=== PATIENT | male | born 1960 | race Caucasian/White ===

== ENCOUNTER 2021-10-06 14:16 | Inpatient (IN) | payer MEDICAID ==
[~2021-10-06] VITALS: Ht 170.2 cm; Wt 80.7 kg
[2021-10-06 14:27] VITALS: BP 119/79
[2021-10-06 16:46] LABS: BASOPHILS # (AUTO) 0.1 K/uL (0.00-0.22); BASOPHILS % (AUTO) 0.7 % (0.0-2.0); EOSINOPHILS # (AUTO) 0.4 K/uL (0-0.4); EOSINOPHILS % (AUTO) 6.3 % (0.0-4.0); HEMATOCRIT 44.8 % (36-52); HEMOGLOBIN 15.7 g/dL (12.0-18.0); LYMPHOCYTES # (AUTO) 1.4 K/uL (2.0-11.5); LYMPHOCYTES % (AUTO) 19.5 % (20.5-51.1); MEAN CORPUSCULAR HEMOGLOBIN 33 pg (27-31); MEAN CORPUSCULAR HGB CONC 35 g/dL (33-37); MEAN CORPUSCULAR VOLUME 92.7 fL (80-94); MONOCYTES # (AUTO) 0.6 K/uL (0.8-1.0); MONOCYTES % (AUTO) 7.8 % (1.7-9.3); NEUTROPHILS # (AUTO) 4.7 K/uL (1.8-7.7); NEUTROPHILS % (AUTO) 65.7 % (42.2-75.2); PLATELET COUNT (AUTO) 158 K/uL (140-450); RED BLOOD CELL COUNT(AUTO) 4.84 MIL/uL (4.20-6.10); RED CELL DISTRIBUTION WIDTH 12.9 % (11.6-13.7); WHITE BLOOD COUNT (AUTO) 7.1 K/uL (4.8-10.8)
--- NOTE | 2021-10-06 16:59 | NUR ---
PT TO ER BED 7 VIA W/C
[2021-10-06 17:14] LABS: ANION GAP 12.6 (8-16); CARBON DIOXIDE 27.7 mmol/L (21-32); CREATININE 1.3 mg/dL (0.6-1.3); POTASSIUM 4.3 mmol/L (3.5-5.1); TOTAL BILIRUBIN 0.5 mg/dL (0.0-1.0)
[2021-10-06] MEDS ORDERED: ONDANSETRON 4 MG/2 ML VIAL IVP PRN (17:50)
[2021-10-06] MEDS ORDERED: MORPHINE SULFATE 2 MG/ML SYR IVP PRN (17:50)
[2021-10-06] MEDS ORDERED: DEXTROSE 50% 50 ML SYR IVP PRN (18:00)
[2021-10-06] MEDS ORDERED: ZOLPIDEM 10 MG TAB PO PRN (18:00)
[2021-10-06] MEDS ORDERED: DOCUSATE SODIUM 100 MG GELCAP PO PRN (18:00)
--- NOTE | 2021-10-06 18:20 | NUR ---
61YO MALE PT BIB FRIEND [facility]OUND [facility]. PT PRESENTS WITH OPEN WOUND DUE TO R BIG TOE AMPUTATION AT [facility] X4 MONTHS AGO ON JUNE 09. PT STATES HE HAD " BONE INFECTION" IN 3 OF HIS TOES IN R FOOT AND TOLD BY [facility] "INFECTION WOULD BE SHAVED OFF". PT HAD FULL AMPUTATION OF ALL TOES IN R FOOT AND WHICH HE REPORTS HE DID NOT CONSENT TO . PT STATES DULL 3/10 PAIN AT SITE. PT STATES WOUND HASNT HEALED SINCE SUTURE REMOVAL AND GOES TO WEEKLY WOUND CHECKS AND CLEANING. PT BACK OF R ANKLE WARM TO TOUCH. PT MARKETING OPERATIONS ASSOCIATE TO TOUCH , CAP REFILL <3 THROUGHOUT FOOT. PT STATES BEIING COMPLIANT W/ ANTIBIOTICS. DENIES N/V/D, CHEST PAIN OR FEVERS. PT AAOX4, NO VISIBLE DISTRESS, RESPIRATIONS EVEN AN UNLABORED AND WHEELCHAIR BOUNDED. HX: DIABETES . HYPERLIPIDIMEA, OSTEOMYLELITIS NKA
--- NOTE | 2021-10-06 18:56 | NUR ---
PT SWABBED FOR COVID(CORIN). WALKED TO LAB
--- NOTE | 2021-10-06 19:15 | NUR ---
REPORT RECIEVED FROM GREGORY RUSS
--- NOTE | 2021-10-06 19:30 | NUR ---
REPORT GIVEN TO HAKAN RUSS. ALL QUESTIONS ANSWERED. TRANSFER OF CARE AT THIS TIME
--- NOTE | 2021-10-06 20:00 | NUR ---
61YR OLD MALE C/O R FOOT PAIN . [facility]. PENDING BED ASSIG. ADMISSION DX OSTEOMYELITIS. R FOOT SWELLING WITH PAIN. BIG TOE ON R FOOT WITH WOUND. PT IS A&OX4. SKIN WARM AND DRY. WHEELCHAIR BOUND. PT IS IN BED WITH HOB ELEVATED. 20G L AC. 5/10 PAIN. BED IN LOWEST POSITION SIDE RAILS UPX2
[2021-10-06] MEDS ORDERED: ASPI-1822 PO (20:41)
[2021-10-06] MEDS ORDERED: MAGN400S60 PO (20:42)
[2021-10-06] MEDS ORDERED: VIT1CAPS45 PO (20:43)
[2021-10-06] MEDS ORDERED: METF-346 PO (20:44)
[2021-10-06] MEDS ORDERED: VIT1CAPS9 PO (20:44)
[2021-10-06] MEDS ORDERED: GABA-636 PO (20:45)
--- NOTE | 2021-10-06 20:53 | NUR ---
Patient will be admitted to care of [facility]. Admited to [facility]. Will go to room 122A. Belongings list completed. Report to KARTIK GRAY.
--- NOTE | 2021-10-06 20:53 | NUR ---
Chart checked and completed.
[2021-10-06 21:04] VITALS: BP 116/59
--- NOTE | 2021-10-06 21:04 | NUR ---
RECEIVED PATIENT FROM ER NURSE STEPHANIE. PT IS FULL CODE NO KNOWN ALLERGIES. A/0 X4. DIVEHI SPEAKING BUT UNDERSTANDS SOME BELGIAN. PT HAS A LAC 20G SALINE LOCK. PT IS WHEELCHAIR BOUND, BUT IS ABLE TO MOVE EXTREMITIES AND TURN HIMSELF. PT TOES ON RT FOOT HAVE BEEN AMPUTATED, AND RT TOE AND RT PINKY TOE AREA ARE RED AND INFLAMED. PICTURES TAKEN AND PLACED IN CHART. PT ORIENTED TO SURROUNDINGS. BED IN LOWEST POSITION, HOB ELEVATED, CALL LIGHT IN REACH, WILL CONTINUE TO MONITOR PATIENT.
[2021-10-06] MEDS ORDERED: PIPERACILLIN/TAZOBACTAM 3.375 GM VIAL IV ONE (21:53)
[2021-10-06] MEDS: PIPERACILLIN/TAZOBACTAM 3.375 GM in DEXTROSE 5% 50 ML IV SCH (21:55)
[2021-10-06] MEDS: BLOOD GLUCOSE MONITORING 1 DEV DEV FS SCH (21:55)
[2021-10-06] MEDS: MORPHINE SULFATE 2 MG/ML SYR IVP PRN (23:41)
[2021-10-07] MEDS ORDERED: MAG SULF 2000 MG/WATER PREMIX 50 ML IV PRN
[2021-10-07] MEDS ORDERED: PIPERACILLIN/TAZOBACTAM 3.375 GM VIAL IV ONE (04:13)
[2021-10-07] MEDS: PIPERACILLIN/TAZOBACTAM 3.375 GM in DEXTROSE 5% 50 ML IV SCH ×3 (05:14→21:02)
[2021-10-07 06:10] VITALS: BP 114/76
[2021-10-07 06:18] LABS: BASOPHILS # (AUTO) 0.1 K/uL (0.00-0.22); BASOPHILS % (AUTO) 0.9 % (0.0-2.0); EOSINOPHILS # (AUTO) 0.5 K/uL (0-0.4); EOSINOPHILS % (AUTO) 8.9 % (0.0-4.0); HEMATOCRIT 42.2 % (36-52); LYMPHOCYTES # (AUTO) 1.7 K/uL (2.0-11.5); LYMPHOCYTES % (AUTO) 28.3 % (20.5-51.1); MEAN CORPUSCULAR HEMOGLOBIN 33 pg (27-31); MEAN CORPUSCULAR HGB CONC 36 g/dL (33-37); MEAN CORPUSCULAR VOLUME 91.8 fL (80-94); MONOCYTES # (AUTO) 0.6 K/uL (0.8-1.0); MONOCYTES % (AUTO) 9.6 % (1.7-9.3); NEUTROPHILS # (AUTO) 3.2 K/uL (1.8-7.7); NEUTROPHILS % (AUTO) 52.3 % (42.2-75.2); PLATELET COUNT (AUTO) 139 K/uL (140-450); RED CELL DISTRIBUTION WIDTH 13.1 % (11.6-13.7); WHITE BLOOD COUNT (AUTO) 6.1 K/uL (4.8-10.8)
[2021-10-07 06:23] LABS: ANION GAP 10.6 (8-16); CARBON DIOXIDE 29.2 mmol/L (21-32); CREATININE 0.8 mg/dL (0.6-1.3); POTASSIUM 3.8 mmol/L (3.5-5.1)
[2021-10-07] MEDS: BLOOD GLUCOSE MONITORING 1 DEV DEV FS SCH ×4 (06:39→21:01)
--- NOTE | 2021-10-07 08:00 | NUR ---
GOT REPORT FROM THE NIGHT NURSE PT SLEEPING NO SOB, LOOKS COMFORTABLE.[id number]
--- NOTE | 2021-10-07 09:07 | NUR ---
PATIENT HAS BEEN SCREENED AND CATEGORIZED LOW NUTRITION RISK. PATIENT WILL BE SEEN WITHIN 7 DAYS OF ADMISSION. 10/13/[address] Addendum: 10/09/21 at [address] [facility] CONSULT HAS BEEN RECEIVED FOR WOUNDS. PATIENT HAS BEEN RE-SCREENED HIGH RISK AND WILL BE SEEN WITHIN 1-2 DAYS OF RECEIVING THE [facility] CONSULT. ROBEL HERNADEZ RD
[2021-10-07 12:00] VITALS: BP_SYST 114; BP_SYST 119; BP_DIAS 73; BP_DIAS 76
[2021-10-07] MEDS: INSULIN LISPRO SLIDING SCALE 100 UNITS/ML VIAL SUBQ PRN (12:44)
[2021-10-07] MEDS: ACETAMINOPHEN 325 MG TAB PO PRN ×2 (13:01→17:01)
[2021-10-07 16:00] VITALS: BP 115/60
[2021-10-07] MEDS: MORPHINE SULFATE 2 MG/ML SYR IVP PRN (21:49)
[2021-10-07 22:00] VITALS: BP 117/58
[2021-10-08] MEDS: PIPERACILLIN/TAZOBACTAM 3.375 GM in DEXTROSE 5% 50 ML IV SCH ×3 (05:17→21:02)
[2021-10-08 06:00] VITALS: BP 114/60
[2021-10-08] MEDS: ONDANSETRON 4 MG/2 ML VIAL IVP PRN (06:03)
[2021-10-08 06:06] LABS: ANION GAP 9.1 (8-16); CARBON DIOXIDE 29.6 mmol/L (21-32); CREATININE 0.8 mg/dL (0.6-1.3); POTASSIUM 3.7 mmol/L (3.5-5.1)
[2021-10-08 06:31] LABS: BASOPHILS % (AUTO) 0.9 % (0.0-2.0); EOSINOPHILS # (AUTO) 0.5 K/uL (0-0.4); HEMATOCRIT 42.7 % (36-52); HEMOGLOBIN 15.2 g/dL (12.0-18.0); LYMPHOCYTES # (AUTO) 1.7 K/uL (2.0-11.5); LYMPHOCYTES % (AUTO) 29.2 % (20.5-51.1); MEAN CORPUSCULAR HEMOGLOBIN 33 pg (27-31); MEAN CORPUSCULAR HGB CONC 36 g/dL (33-37); MEAN CORPUSCULAR VOLUME 91.5 fL (80-94); MONOCYTES # (AUTO) 0.6 K/uL (0.8-1.0); MONOCYTES % (AUTO) 9.8 % (1.7-9.3); NEUTROPHILS # (AUTO) 2.9 K/uL (1.8-7.7); NEUTROPHILS % (AUTO) 51.1 % (42.2-75.2); PLATELET COUNT (AUTO) 138 K/uL (140-450); RED BLOOD CELL COUNT(AUTO) 4.67 MIL/uL (4.20-6.10); RED CELL DISTRIBUTION WIDTH 12.8 % (11.6-13.7); WHITE BLOOD COUNT (AUTO) 5.7 K/uL (4.8-10.8)
[2021-10-08] MEDS: BLOOD GLUCOSE MONITORING 1 DEV DEV FS SCH ×4 (06:39→21:50)
--- NOTE | 2021-10-08 07:33 | NUR ---
RECEIVED PATIENT FROM SHOVEL LOGGER NURSE FOR CONTINUITY OF CARE. PT IS AOX4, ABLE TO MAKE NEEDS KNOWN. RESPIRATIONS EVEN AND UNLABORED. ON ROOM AIR AND NO DISTRESS NOTED. SKIN IS WARM, DRY, AND NON-INTACT. NOTED OPEN TWO OPEN ULCERS ON RIGHT FOOT. NO DRAINAGE NOTED. REINFORCED DRESSING. IV SITE ON LAC 20G. INTACT AND PATENT. SALINE LOCKED. DENIES PAIN AT THE MOMENT. PLAN OF CARE DISCUSSED. SAFETY PRECAUTIONS IN PLACE. CALL LIGHT WITHIN REACH. WILL CONTINUE TO MONITOR.
[2021-10-08 08:00] VITALS: BP 124/75
--- NOTE | 2021-10-08 10:00 | NUR ---
ALL SCHEDULED MEDS GIVEN. PT IS STABLE. NO DISTRESS NOTED. WILL CONTINUE TO MONITOR.
[2021-10-08] MEDS: INSULIN LISPRO SLIDING SCALE 100 UNITS/ML VIAL SUBQ PRN ×2 (12:18→22:13)
--- NOTE | 2021-10-08 12:18 | NUR ---
BS CHECK WAS 271. ADMINISTERED 6 UNITS OF INSULIN SQ PER MD ORDERED.
--- NOTE | 2021-10-08 14:15 | NUR ---
CHANGED PATIENT'S RIGHT FOOT WOUND DRESSING. KEPT C/D/I. NO DRAINAGE WAS NOTED.
[2021-10-08 16:00] VITALS: BP 130/74
--- NOTE | 2021-10-08 17:10 | NUR ---
DR. PALOMO AT BEDSIDE.
--- NOTE | 2021-10-08 17:25 | NUR ---
CONSULTED DR. ROSALES PODIATRY.
--- NOTE | 2021-10-08 19:26 | NUR ---
ENDORSED TO JAVA SECURITY ARCHITECT NURSE FOR CONTINUITY OF CARE. PT IS STABLE.
--- NOTE | 2021-10-08 19:30 | NUR ---
RECEIVED REPORT FROM DAY SHIFT NURSE JASKARAN FOR CONTINUITY OF CARE. PATIENT IS A&O X 4. PATIENT'S IV IS A LAC 20G. HE IS RUNNING NS 5ML TKO. PATIENT IS ON ROOM AIR. BREATHING IS NORMAL WITH SYMMETRICAL RISE AND FALL OF CHEST. RIGHT FOOT IS WRAPPED, PATIENT IS MISSING TOES ALL TOES DUE TO AMPUTATION. WILL CONTINUE TO OBSERVE PATIENT.
[2021-10-08 20:00] VITALS: BP 129/68
--- NOTE | 2021-10-08 20:15 | NUR ---
OBTAINED VITALS. VITALS WERE: TEMP 97.7, HR 64, BP 129/68, O2 98, RR 18. PATIENT WAS AWAKE WATCHING TV. PATIENT IS ON ROOM AIR. BREATHING WAS NORMAL WITH SYMMETRICAL RISE AND FALL OF CHEST. BED IS IN LOWEST POSITION, WHEELS LOCKED, CALL LIGHT IN PLACE. WILL CONTINUE TO OBSERVE PATIENT.
--- NOTE | 2021-10-08 22:15 | NUR ---
2100 MEDICATIONS WERE GIVEN. PATIENT TOLERATED WELL. 1200ML WAS EMPTIED FROM URINAL. BLOOD SUGAR WAS 159, 2 UNITS WAS GIVEN. DRESSING ON FOOT APPEARED TO BE DIRTY, DRESSING WAS REMOVED, FOOT HAD TWO OPEN WOUNDS ON EACH END. PLACED NEW GAUZE AND BANDAGE ON FOOT. PATIENT WAS AWAKE WATCHING TV. IVF WAS RUNNING NS 5ML TKO. BREATHING WAS NORMAL WITH SYMMETRICAL RISE AND FALL OF CHEST. BED WAS IN LOWEST POSITION, CALL LIGHT IN REACH. WILL CONTINUE TO OBSERVE PATIENT.
--- NOTE | 2021-10-09 00:10 | NUR ---
LOOKED IN ON PATIENT. PATIENT WAS SLEEPING. BREATHING WAS NORMAL WITH SYMMETRICAL RISE AND FALL OF CHEST. BED WAS IN LOWEST POSITION, WHEELS LOCKED AND CALL LIGHT IN REACH. WILL CONTINUE TO OBSERVE PATIENT.
--- NOTE | 2021-10-09 02:00 | NUR ---
LOOKED IN ON PATIENT. PATIENT WAS SLEEPING. PATIENT IS RUNNING NS AT 5ML TKO. BED WAS IN LOWEST POSITION, WHEELS LOCKED, CALL LIGHT IN PLACE. BREATHING WAS NORMAL WITH SYMMETRICAL RISE AND FALL OF CHEST. WILL CONTINUE TO OBSERVE PATIENT.
[2021-10-09 04:00] VITALS: BP 129/71
--- NOTE | 2021-10-09 04:20 | NUR ---
OBTAINED PATIENT'S 0400 VITALS. PATIENT WAS SLEEPING AT THE TIME OF ENTERING ROOM. VITALS WERE: TEMP 97.3, HR 63, BP 129/71, RR 18, O2 98. WILL CONTINUE TO OBSERVE PATIENT.
[2021-10-09] MEDS: PIPERACILLIN/TAZOBACTAM 3.375 GM in DEXTROSE 5% 50 ML IV SCH ×3 (05:41→20:37)
--- NOTE | 2021-10-09 05:50 | NUR ---
GAVE ZOSYN IVPB. PATIENT WAS AWAKE IN BED WATCHING TELEVISION. IVF WAS RUNNING NS 5ML TKO. WILL CONTINUE TO OBSERVE PATIENT.
[2021-10-09 06:09] LABS: ANION GAP 14.1 (8-16); BASOPHILS % (AUTO) 0.5 % (0.0-2.0); CARBON DIOXIDE 26.4 mmol/L (21-32); CREATININE 0.8 mg/dL (0.6-1.3); EOSINOPHILS # (AUTO) 0.3 K/uL (0-0.4); EOSINOPHILS % (AUTO) 5.8 % (0.0-4.0); HEMATOCRIT 41.4 % (36-52); HEMOGLOBIN 14.5 g/dL (12.0-18.0); LYMPHOCYTES # (AUTO) 1.7 K/uL (2.0-11.5); LYMPHOCYTES % (AUTO) 30.6 % (20.5-51.1); MEAN CORPUSCULAR HEMOGLOBIN 32 pg (27-31); MEAN CORPUSCULAR HGB CONC 35 g/dL (33-37); MEAN CORPUSCULAR VOLUME 91.6 fL (80-94); MONOCYTES # (AUTO) 0.4 K/uL (0.8-1.0); MONOCYTES % (AUTO) 7.8 % (1.7-9.3); NEUTROPHILS # (AUTO) 3.2 K/uL (1.8-7.7); NEUTROPHILS % (AUTO) 55.3 % (42.2-75.2); PLATELET COUNT (AUTO) 146 K/uL (140-450); POTASSIUM 3.5 mmol/L (3.5-5.1); RED BLOOD CELL COUNT(AUTO) 4.52 MIL/uL (4.20-6.10); WHITE BLOOD COUNT (AUTO) 5.7 K/uL (4.8-10.8)
[2021-10-09] MEDS: BLOOD GLUCOSE MONITORING 1 DEV DEV FS SCH ×4 (07:11→20:49)
--- NOTE | 2021-10-09 07:11 | NUR ---
BS WAS 98. NO COVERAGE WAS NEEDED.
--- NOTE | 2021-10-09 07:35 | NUR ---
ENDORSED TO DAY SHIFT FOR CONTINUITY OF CARE. PATIENT IS STABLE.
--- NOTE | 2021-10-09 07:36 | NUR ---
RECEIVED ENDORSEMENT FROM FINISHING TUNNEL OPERATOR NURSE FOR CONTINUITY OF CARE. PATIENT AWAKE VERBALLY RESPONSIVE ABLE TO MAKE NEEDS KNOWN. RESPIRATION EVEN AND NOT LABORED NO SHORTNESS OF BREATH ON ROOM AIR. IV SITE ON LEFT AC JOEY 20 TKO AT 5 CC/HOUR OF NS. ALL SAFETY MEASURE IN PLACE. DENIES PAIN AT THI TIME.
--- NOTE | 2021-10-09 09:05 | NUR ---
WOUND CARE EVALUATION NOTE: PT. ADMITTED WITH [facility] RIGHT FOOT TRANSMETATARSAL AMPUTATION WITH OSTEOMYELITIS OF THE RIGHT FIRST AND FIFTH METATARSAL HEADS. WOUND CARE DONE WITH DRESSING CHANGED. DR. LARA AT BED SIDE , WOUNDS CHECKED. POC DISCUSSED WITH PRIMARY NURSE AND PT. PT. VERBALIZES UNDERSTANDING. RIGHT S/P TMA SURGICAL WOUNDS RIGHT FIRST METATARSAL 3X2X0.3CM 10% YELLOW SLOUGH TISSUE, 90% RED GRANULATION TISSUE,SMALL AMOUNT PURULENT DRAINAGE, NO ODOR, MASON WOUND HEALED SCAR TISSUE. PAIN 0/10. RIGHT 5TH METATARSAL 1X1.5X0.2CM 100% RED GRANULATION TISSUE,SMALL AMOUNT SEROSANGUINEOUS, NO ODOR, MASON WOUND HEALED SCAR TISSUE.PAIN 0/10. RECOMMENDATIONS: -CLEANSE RIGHT FOOT SURGICAL WOUND WITH WOUND CARE SOLUTION, PAT DRY. APPLY SILVASORB GEL TO WOUND BEDS AND COVER WITH DRY DRESSING QD AND PRN IF SOILING Addendum: 10/09/21 at 1109 by Otto Greene RN (Grace) DURING CHART REVIEW NOTICE NO WOUND CX, SPOKE TO DR. LARA ORDER GIVEN TO OBTAIN CX TOMORROW DURING WOUND CARE. POC DISCUSSED WITH PRIMARY NURSE.
[2021-10-09] MEDS: INSULIN LISPRO SLIDING SCALE 100 UNITS/ML VIAL SUBQ PRN (11:55)
--- NOTE | 2021-10-09 12:09 | NUR ---
BLOOD SUGAR CHECKED GIVEN INSULIN COVERAGE FOR BLOOD SUGAR 160. GIVEN ICE WATER REQUEST AND EMPTY URINAL.
--- NOTE | 2021-10-09 12:57 | NUR ---
ISAAC PATTERSON IV ANTIBIOTIC NO ADVERSE REACTION NOTED.
--- NOTE | 2021-10-09 15:41 | NUR ---
PATIENT ON BED RESTING NO DISTRESS NOTED. NO ADVERSE REACTION NOTED ON IV ANTIBIOTIC THERAPY. PATIENT DRINKING SUFFICIENT AMOUNT OF FLUID. RIGHT FOOT DRESSING INTACT AND NO DRAINAGE NOTED. DENIES PAIN AT THIS TIME. CALL LIGHT WITH IN EASY REACH.
[2021-10-09 16:00] VITALS: BP 142/76
--- NOTE | 2021-10-09 16:52 | NUR ---
PATIENT ALERT NO DISTRESS NOTED. BLOOD SUGAR CHECK NO COVERAGE FOR BLOOD SUGAR 128. CALL LIGHT WITH IN EASY REACH.
--- NOTE | 2021-10-09 16:52 | NUR ---
10/09/21 RD INITIAL ASSESSMENT COMPLETED PLEASE REFER TO NUTRITION ASSESSMENT UNDER CARE ACTIVITY FOR ESTIMATED NUTRITIONAL NEEDS. 1. CONTINUE CONSISTENT CARB DIET TOLERATED 2. RECOMMEND PROSOURCE NO CARB BID FOR WOUND HEALING 3. RD TO FOLLOW-UP 7 DAYS, LOW RISK MARIELLE HERNADEZ RD
--- NOTE | 2021-10-09 19:24 | NUR ---
GAVE REPORT TO UTILIZATION SPECIALIST NURSE FOR CONTINUITY OF CARE. PATIENT AWAKE WITH VISITOR AT BED SIDE.
[2021-10-10] VITALS: BP 134/72
[2021-10-10] MEDS: PIPERACILLIN/TAZOBACTAM 3.375 GM in DEXTROSE 5% 50 ML IV SCH ×3 (04:00→20:37)
[2021-10-10 05:50] LABS: BASOPHILS % (AUTO) 0.7 % (0.0-2.0); EOSINOPHILS # (AUTO) 0.4 K/uL (0-0.4); EOSINOPHILS % (AUTO) 6.7 % (0.0-4.0); HEMATOCRIT 40.8 % (36-52); HEMOGLOBIN 14.6 g/dL (12.0-18.0); LYMPHOCYTES # (AUTO) 1.8 K/uL (2.0-11.5); LYMPHOCYTES % (AUTO) 31.9 % (20.5-51.1); MEAN CORPUSCULAR HEMOGLOBIN 33 pg (27-31); MEAN CORPUSCULAR HGB CONC 36 g/dL (33-37); MEAN CORPUSCULAR VOLUME 91.4 fL (80-94); MONOCYTES # (AUTO) 0.5 K/uL (0.8-1.0); MONOCYTES % (AUTO) 8.4 % (1.7-9.3); NEUTROPHILS # (AUTO) 2.9 K/uL (1.8-7.7); NEUTROPHILS % (AUTO) 52.3 % (42.2-75.2); PLATELET COUNT (AUTO) 141 K/uL (140-450); RED BLOOD CELL COUNT(AUTO) 4.46 MIL/uL (4.20-6.10); WHITE BLOOD COUNT (AUTO) 5.6 K/uL (4.8-10.8)
[2021-10-10 06:09] LABS: ANION GAP 14.4 (8-16); CARBON DIOXIDE 26.4 mmol/L (21-32); CREATININE 0.7 mg/dL (0.6-1.3); POTASSIUM 3.8 mmol/L (3.5-5.1)
[2021-10-10] MEDS: BLOOD GLUCOSE MONITORING 1 DEV DEV FS SCH ×4 (06:32→20:35)
--- NOTE | 2021-10-10 07:30 | NUR ---
RECEIVED REPORT FROM NIGHTSHIFT NURSE. PT A/O X4. ABLE TO MAKE NEEDS KNOWN. DENIES PAIN. NO SOB. RR EVEN & UNLABORED. ON RA. WHEELCHAIR AT BEDSIDE. NEEDS ALL MET AT THIS TIME. SAFETY MEASURES IN PLACE.
[2021-10-10 08:00] VITALS: BP 126/72
[2021-10-10] MEDS: MORPHINE SULFATE 2 MG/ML SYR IVP PRN (11:24)
[2021-10-10] MEDS: INSULIN LISPRO SLIDING SCALE 100 UNITS/ML VIAL SUBQ PRN ×2 (11:36→20:38)
[2021-10-10] MEDS: GAUZE TP SCH (12:10)
[2021-10-10 16:00] VITALS: BP 127/76
--- NOTE | 2021-10-10 17:55 | NUR ---
DISCHARGE PLANNING PATIENT IS A 61 YEAR OL MALE ADMITTED ON 10/06/2021 TO THE [facility]/ED DUE TO A POST OPERATIVELY WOUND THAT WAS NOT CLOSED PROPERLY, IN THE OPEN AND WITH CONCERNS OF POSSIBLY GETTING INFECTED IF NOT TREATED PROPERLY. PATIENT HAS PAST MEDICAL HISTORY OF DIABETES HAS BEEN IN THE ER IN THE PAST YEAR FOR RIGHT FOOT EVALUATION DUE TO PAIN AND INFECTION. PATIENT DURING THESE ADMISSION REPORTED THAT HE HAD RIGHT TOES AMPUTATION IN [place] AND HE [place] [facility] [place]TIB[place]OTICS. PER PATIENT HE WILL LIKE TO RET[place] [facility] [place] HE IS STABLE TO DISCHARGE FROM [facility]. PATIENT REPORTED HAVING LIMITED FAMILY SUPPORT BUT HAVING FAMILY HER NIECE YVES FERNÁNDEZ AND HER FRIEND AND NEIGHBOR SILVINA ( [phone]. PER PATIENT HE HAS NO A.D. AND WAS INTERESTED ON GETTING INF. FORMS PROVIDED BY TOÑO. PATIENT REPORTED HAVING NO ISSUES GETTING ALL HIS MEDICATIONS AND HAVING A WHEELCHAIR AND A WALKER HIS DME.SW PROVIDE PATIENT WITH INFORMATION ABOUT SD. AND DISABILITY INFORMATION. PATIENT WAS HAPPY WITH RESOURCES AND THANKED THESE RHIT. SW [place] [facility] [place]POKE TO [place] ABOUT PATIENT AND DISCUSS INFORMATION. PER MARGIE PATIENT WAS TRANSFER TO THEM ON 06/09/2021 UNDER SKILL NEED AFTER HE HAD SURGERY IN [place]. PATIENT IS CURRENTLY UNDER A BED HOLD AND HE IS ABLE TO [place] [facility] [place] IS READY FOR DC. SW WILL FOLLOW UP NEEDED.
--- NOTE | 2021-10-10 18:50 | NUR ---
PT WITH LUNCH AT BEDSIDE. NO SOB OR RESPIRATORY DISTRESS. ON RA. WHEELCHAIR AT BEDSIDE. ITEMS/CALL LIGHT WITHIN REACH. PT STABLE. DENIES PAIN AT THIS TIME. SAFETY MEASURES IN PLACE.
--- NOTE | 2021-10-10 19:18 | NUR ---
REPORT GIVEN TO [facility] NURSEJOSÉ LUIS FOR CONTINUITY OF CARE.
[2021-10-10 20:08] VITALS: BP 158/69
[2021-10-11] MEDS: PIPERACILLIN/TAZOBACTAM 3.375 GM in DEXTROSE 5% 50 ML IV SCH ×2 (04:35→23:13)
[2021-10-11 05:26] LABS: BASOPHILS # (AUTO) 0.1 K/uL (0.00-0.22); BASOPHILS % (AUTO) 0.7 % (0.0-2.0); EOSINOPHILS # (AUTO) 0.3 K/uL (0-0.4); EOSINOPHILS % (AUTO) 4.5 % (0.0-4.0); HEMATOCRIT 41.6 % (36-52); HEMOGLOBIN 14.8 g/dL (12.0-18.0); LYMPHOCYTES # (AUTO) 1.5 K/uL (2.0-11.5); LYMPHOCYTES % (AUTO) 20.1 % (20.5-51.1); MEAN CORPUSCULAR HEMOGLOBIN 32 pg (27-31); MEAN CORPUSCULAR HGB CONC 36 g/dL (33-37); MEAN CORPUSCULAR VOLUME 91.1 fL (80-94); MONOCYTES # (AUTO) 0.5 K/uL (0.8-1.0); MONOCYTES % (AUTO) 6.2 % (1.7-9.3); NEUTROPHILS # (AUTO) 5.2 K/uL (1.8-7.7); NEUTROPHILS % (AUTO) 68.5 % (42.2-75.2); PLATELET COUNT (AUTO) 139 K/uL (140-450); RED BLOOD CELL COUNT(AUTO) 4.57 MIL/uL (4.20-6.10); WHITE BLOOD COUNT (AUTO) 7.6 K/uL (4.8-10.8)
[2021-10-11 06:16] LABS: CARBON DIOXIDE 27.4 mmol/L (21-32); CREATININE 0.7 mg/dL (0.6-1.3); POTASSIUM 3.4 mmol/L (3.5-5.1)
[2021-10-11] MEDS: BLOOD GLUCOSE MONITORING 1 DEV DEV FS SCH ×4 (06:24→21:19)
[2021-10-11 08:00] VITALS: BP 149/90
[2021-10-11] MEDS: ONDANSETRON 4 MG/2 ML VIAL IVP PRN (09:15)
--- NOTE | 2021-10-11 10:42 | NUR ---
DC PLANNING: THE PATIENT PRESENTED FROM [facility] WITH C/O WORSENING WOUND S/P RIGHT BIG TOE AMPUTATION, H/O DM AND RIGHT TMA IN JUNE OF THIS YEAR. FOOT XRAY SHOWS OSTEOMYELITIS OF 1ST AND 5TH METATARSAL HEADS WITH SUPERIMPOSED CELLULITIS. ORDERS FOR CONSULTS WITH ID AND PODIATRY. STARTED ON ZOSYN IV, SEEN BY PODIATRY WHO DOCUMENTED TAKING A BONE BIOPSY/BONE CULTURE ON 10/09, ATTENDING MD REPORTED CULTURE RESULTS PENDING, MICRO PANEL SHOWS CULTURE IS CANCELLED. CM SPOKE WITH MICROBIOLOGY AT [facility], THEY DID NOT RECEIVE THE BONE SPECIMEN BUT ARE PROCESSING THE WOUND CULTURE TODAY. DELAY IN PROCESSING WAS BECAUSE CULTURE HAD TO BE REORDERED IT WAS PUT IN INCORRECTLY INITIALLY. CM SPOKE WITH DR DESAI TO ENDORSE ABOVE AND DISCUSS PLAN, SHE WILL SPEAK WITH PODIATRY AND ID TO DETERMINE IF PLAN IS SURGERY VS FPC ABX. ALSO WAITING FOR ARTERIAL US BLE'S TO FURTHER DETERMINE POC. CM ASKED THAT MIDLINE BE ORDERED IF PLAN IS FOR FPC IV ABX. THE PATIENT CAME FROM [facility] AND WILL RETURN THERE WHEN CLINICALLY STABLE. VERBAL REVIEW GIVEN TO KASSANDRA SALINAS AT [facility]. CM WILL FOLLOW. Addendum: 10/17/21 at 1520 by Charu Andrade RN DC PLANNING: FAXED THE SNF ORDER TO [facility], CONTRACTED FACILITY [facility] AND [facility] STATED NO BED AVAILABLE UNTIL SATURDAY Addendum: 10/19/21 at 1430 by Pina Schuler CM DC PLANNING: KASSANDRA FAXED PATIENTS REFERRAL PACKET TO [facility] YESTERDAY, SPOKE WITH VALE IN ADMITTING. SKILLED NEED IS FOR WOUND CARE AND IV ABX, VALE WILL CALL KASSANDRA TOMORROW WITH ROOM NUMBER AFTER PROMED APPROVES SKILLED LEVEL. KASSANDRA WILL FOLLOW. Addendum: 10/23/21 at 1200 by Pina Schuler CM DC PLANNING: [facility] THAT [facility] WAS [facility]ENTION AND WAS GOING TO BE DC'D TO HOME FROM THEM. PATIENT IS ALSO OUT OF [facility] WITH INSURANCE OF [facility]. TOÑO PEÑA WILL F/U ON INFORMATION FROM PATIENT FOR HOME DC, F/U WITH DR ROSALES WILL BE ARRANGED. CM WILL FOLLOW. Addendum: 10/23/21 at 1651 by Pina Schuler CM DC PLANNING: KASSANDRA AND TOÑO ATTEMPTED TO SPEAK WITH THE PATIENT REGARDING DC PLANNING. THE PATIENT WAS ON THE PHONE FOR OVER AN HOUR WITH NM ANIA, KASSANDRA AND TOÑO UNABLE TO HAVE A CONSISTENT CONVERSATION WITH HIM. KASSANDRA SPOKE AT LENGTH WITH VALE FROM [facility] WHO STATES THAT [facility] STAFF MET WITH HIM THREE TIMES AND TOLD HIM HE WOULD BE DISCHARGED 2 WEEKS AGO. VALE STATES THAT THE PLAN WHEN THE PATIENT WAS ADMITTED WAS FOR HIM TO DISCHARGE BACK TO HIS ORIGINAL SETTING WHICH A ROOM HE RENTS FROM A FRIEND. VALE ALSO STATED THAT THE PATIENT WAS DENIED FURTHER COVERAGE FOR A LONGER STAY AT SNF LEVEL BY INSURANCE. NURSING ALSO CONFIRMED THAT THE ATTENDING MD SPOKE WITH THE PATIENT TODAY ABOUT HIS LABS AND PLAN TO CONTINUE ON PO ANTIBIOTICS POST DISCHARGE. THE PATIENT STATED TO [facility] THAT HE HAS NO PLACE TO GO AND ASKED FOR HOMELESS RESOURCES YET GAVE THEM AN ADDRESS HE CONFIRMED PERMANENT. WHEN ASKED ABOUT HIS REQUEST BY [facility] FOR HOMELESS RESOURCES HE STATED THAT THE HOUSE HE RENTS A ROOM IN DOESN'T HAVE HANDICAPPED ACCOMMODATIONS. HE IS ALSO STATING THAT HE CAN'T WALK. KASSANDRA CONFIRMED WITH NURSING THAT THE PATIENT IS ABLE TO WALK TO THE BATHROOM WITHOUT ASSISTANCE. KASSANDRA AND TOÑO SPOKE FOR A SHORT TIME TO PATIENT, WHILE HE WAS ON HOLD WITH [facility] ABOUT OPTIONS OF A MOTEL OR BOARD AND CARE THE PATIENT STATES THAT HE WON'T LEAVE UNTIL HE'S TOLD THAT HE IS COMPLETELY INFECTION FREE. KASSANDRA ENDORSED THAT APPOINTMENTS CAN BE SET UP FOR HIS CONTINUED FOLLOW UP IN [place] FOR WOUND CARE HE IS REFUSING TO FOLLOW UP WITH THE CRACKER SPRAYER WHO IS SEEING HIM HERE. KASSANDRA ALSO REITERATED THAT HE NO LONGER NEEDED IV ANTIBIOTICS AND THAT HIS DOCTOR HAD DETERMINED THAT HE IS STABLE FOR DISCHARGE. KASSANDRA ALSO NOTIFIED THE ATTENDING MD EARLIER TODAY THAT THE PATIENT WOULD BE GOING TO A HOME SETTING INSTEAD OF SNF. THE PATIENT WAS STILL TALKING WITH NM ANIA AFTER AN HOUR OF TRYING TO SPEAK WITH HIM, KASSANDRA AND SW WILL FOLLOW UP IN AM. Addendum: 10/24/21 at 1009 by Pina Schuler CM DC PLANNING: KASSANDRA SPOKE WITH [facility] THIS MORNING, THEY STATE THAT PATIENT IS AUTHORIZED FOR MEAT GRINDER CARE AT [facility] THROUGH MARCH 2022. KASSANDRA SPOKE WITH [facility] WHO CONTINUED TO DENY HIM, THE FRAME TRIMMER SPOKE WITH THEM AND UPDATED INFORMATION WAS FAXED PER THEIR REQUEST. DC PENDING ROOM ASSIGNMENT AND MD TO FOLLOW, KASSANDRA WILL ARRANGE TRANSPORT WITH [email or web address] PATIENT IS OUT OF [facility] FOR TRANSPORT. KASSANDRA WILL FOLLOW. Addendum: 10/24/21 at 1115 by Pina Schuler CM DC PLANNING: THE PATIENT IS ACCEPTED BACK TO [facility], ROOM 37B, DR LARA TO FOLLOW. PATIENT WILL BE PICKED UP BY [email or web address] TRANSPORT TODAY ([phone]). NUMBER TO CALL REPORT IS [phone]. CM SPOKE WITH THE PATIENT AT BEDSIDE TO DISCUSS DC TO [facility] TODAY. PATIENT IS IN AGREEMENT AND REITERATED THAT HE IS PRIMARILY WC BOUND AND NEEDS FURTHER CARE AND ASSISTANCE. CM LET HIM KNOW THAT HE WILL BE PICKED UP AT 1730, HE STATES HE'S IN AGREEMENT WITH PLAN TO DC TO [facility] AT THAT TIME. CM ENDORSED ABOVE TO THE PATIENTS NURSE. CM WILL FOLLOW.
[2021-10-11] MEDS: INSULIN LISPRO SLIDING SCALE 100 UNITS/ML VIAL SUBQ PRN (12:24)
[2021-10-11] MEDS: POTASSIUM CHLORIDE 10 MEQ TABER PO PRN (12:25)
[2021-10-11] MEDS: GAUZE TP SCH (13:00)
[2021-10-11 16:00] VITALS: BP 141/68
--- NOTE | 2021-10-11 19:19 | NUR ---
RECD. RESTING IN BED, AWAKE, A/OX4. WATCHING TV. RESPIRATION EVEN AND UNLABORED. IV SALINE LOCK AT THE LEFT AC G20, PATENT AND INTACT. RIGHT FOOT COVERED WITH LUCIA WRAPPED BANDAGE DRY AND INTACT, ELEVATED ON TWO PILLOWS. MEDICATIONS FOR THE SHIFT DISCUSSED WITH PATIENT, VERBALIZED UNDERSTANDING. DENIES PAIN 0/10.
--- NOTE | 2021-10-11 21:17 | NUR ---
SCHEDULED MEDICATIONS FOR THE NIGHT ADMINISTERED. SNACK FOR THE NIGHT GIVEN.
--- NOTE | 2021-10-11 22:38 | NUR ---
UNABLE TO SLEEP, MEDICATED WITH AMBIEN PER MD ORDER.
--- NOTE | 2021-10-11 23:10 | NUR ---
Patient's Plan of Care was discussed and reviewed with SECURITY INCIDENT RESPONSE ENGINEER: DAYNA KANG
--- NOTE | 2021-10-11 23:10 | NUR ---
ADMINISTERED SCHEDULED ANTIBIOTIC PER ORDER
[2021-10-12] VITALS: BP 144/82
--- NOTE | 2021-10-12 01:00 | NUR ---
USED HIS W/C TO GO TO THE BR TO VOID. SAFETY MAINTAINED.
--- NOTE | 2021-10-12 03:00 | NUR ---
SLEEPING COMFORTABLY IN BED. RESPIRATION EVEN AND UNLABORED.
[2021-10-12] MEDS ORDERED: PIPERACILLIN/TAZOBACTAM 3.375 GM VIAL IV ONE (05:40)
[2021-10-12] MEDS: PIPERACILLIN/TAZOBACTAM 3.375 GM in DEXTROSE 5% 50 ML IV SCH ×3 (05:49→18:29)
--- NOTE | 2021-10-12 05:49 | NUR ---
ADMINISTERED SCHEDULED ANTIBIOTIC PER ORDER
[2021-10-12] MEDS: BLOOD GLUCOSE MONITORING 1 DEV DEV FS SCH ×4 (06:57→21:59)
--- NOTE | 2021-10-12 07:00 | NUR ---
CONDITION REMAIN STABLE. WILL ENDORSE TO AM SHIFT NURSE FOR CONTINUITY OF CARE.
--- NOTE | 2021-10-12 07:30 | NUR ---
RECEIVED REPORT FROM NIGHTSHIFT NURSE. PT A/O X4. ABLE TO MAKE NEEDS KNOWN. DENIES PAIN. NO SOB OR RESPIRATORY DISTRESS. RR EVEN & UNLABORED. ON RA. IV TO SL. ITEMS/CALL LIGHT WITHIN REACH. NEEDS ALL MET AT THIS TIME. SAFETY MEASURES IN PLACE.
[2021-10-12 08:00] VITALS: BP 112/67
[2021-10-12] MEDS: INSULIN LISPRO SLIDING SCALE 100 UNITS/ML VIAL SUBQ PRN ×2 (11:35→22:04)
[2021-10-12] MEDS: MORPHINE SULFATE 2 MG/ML SYR IVP PRN (11:47)
[2021-10-12] MEDS: GAUZE TP SCH (12:13)
--- NOTE | 2021-10-12 12:47 | NUR ---
PAIN MED GIVEN. SEE EMAR. DRESSING CHANGE COMPLETED. PT TOLERATED WELL. HOB ELEVATED. LUNCH AT BEDSIDE. IN NO DISTRESS. NO SOB. NEEDS ALL MET. SAFETY MEASURES IN PLACE.
[2021-10-12 16:00] VITALS: BP 141/73
--- NOTE | 2021-10-12 19:30 | NUR ---
REPORT GIVEN TO NIGHTSHIFT NURSE FOR CONTINUITY OF CARE.
[2021-10-12 20:00] VITALS: BP 123/66
[2021-10-13 04:00] VITALS: BP 122/71
[2021-10-13] MEDS: MEROPENEM 1,000 MG in NACL 0.9% 50 ML IV SCH ×3 (04:57→21:37)
[2021-10-13] MEDS: BLOOD GLUCOSE MONITORING 1 DEV DEV FS SCH ×4 (06:35→22:17)
--- NOTE | 2021-10-13 07:30 | NUR ---
RECEIVED REPORT FROM NIGHTSHIFT NURSE. PT A/O X4. ABLE TO MAKE NEEDS KNOWN. NO SOB OR RESPIRATORY DISTRESS. ON RA. DENIES PAIN. WHEELCHAIR AT BEDSIDE. IV TO SL. NEEDS ALL MET AT THIS TIME. ITEMS/CALL LIGHT WITHIN REACH. SAFETY MEASURES IN PLACE.
[2021-10-13 08:00] VITALS: BP 119/67
--- NOTE | 2021-10-13 09:30 | NUR ---
SPOKE TO MD REGARDING PT REQUEST TO SHOWER. MD STATES PT MAY SHOWER. SEE NEW ORDERS.
[2021-10-13] MEDS: GAUZE TP SCH (13:16)
[2021-10-13 16:00] VITALS: BP 130/70
--- NOTE | 2021-10-13 18:42 | NUR ---
PT RESTING COMFORTABLY. VSS. DENIES PAIN. HOB ELEVATED. NEEDS ALL MET AT THIS TIME. ALL SAFETY MEASURES IN PLACE.
--- NOTE | 2021-10-13 19:18 | NUR ---
ENDORSED PLAN OF CARE TO NIGHTSHIFT NURSE FOR CONTINUITY OF CARE.
[2021-10-13 20:00] VITALS: BP 133/73
[2021-10-13] MEDS: INSULIN LISPRO SLIDING SCALE 100 UNITS/ML VIAL SUBQ PRN (22:23)
[2021-10-14] MEDS: MEROPENEM 1,000 MG in NACL 0.9% 50 ML IV SCH ×3 (06:44→20:30)
[2021-10-14] MEDS: BLOOD GLUCOSE MONITORING 1 DEV DEV FS SCH ×4 (06:50→20:30)
--- NOTE | 2021-10-14 07:30 | NUR ---
RECEIVED REPORT FROM COMPUTER EQUIPMENT INSTALLER NURSE FOR CONTINUITY OF CARE, POC DISCUSSED. PT RESTING IN BED WITH NO ACUTE S/S OF DISTRESS. ALL SAFETY MEASURES IN PLACE, CALL LIGHT WITHIN REACH. WILL CONTINUE TO MONITOR.
[2021-10-14 08:00] VITALS: BP 147/76
--- NOTE | 2021-10-14 09:45 | NUR ---
ARVIND MEDICATION HELD DUE TO NO RECENT LAB DRAW, LAST PLT COUNT ON 10/11 WAS 134. PENDING NEW ORDER FOR NEW LAB DRAW. WOUND CARE PROVIDED TO RIGHT FOOT PER DR ROSALES ORDER. CLEANSED WITH NS, PAT DRY, COVERED WITH BETADINE, AND PENA, THEN WRAPPED IN GAUZE AND KERLIX. PT TOLERATED CLEANING, TOLERABLE PAIN LEVEL AT 2/10. ALL SAFETY MEASURES IN PLACE, CALL LIGHT WITHIN REACH. WILL CONTINUE TO MONITOR
[2021-10-14] MEDS: GAUZE TP SCH (13:00)
[2021-10-14] MEDS: ACETAMINOPHEN 325 MG TAB PO PRN ×2 (14:36→20:30)
[2021-10-14 16:00] VITALS: BP 129/74
--- NOTE | 2021-10-14 18:41 | NUR ---
PT REMAINED STABLE, WILL BE ENDORSED TO CONTRACTING SUPPORT SPECIALIST NURSE.
[2021-10-14 20:00] VITALS: BP 141/69
[2021-10-14] MEDS: INSULIN LISPRO SLIDING SCALE 100 UNITS/ML VIAL SUBQ PRN (20:36)
[2021-10-15 04:00] VITALS: BP 110/61
[2021-10-15] MEDS: MEROPENEM 1,000 MG in NACL 0.9% 50 ML IV SCH ×3 (05:51→21:58)
[2021-10-15] MEDS: BLOOD GLUCOSE MONITORING 1 DEV DEV FS SCH ×4 (06:51→21:32)
[2021-10-15] MEDS: INSULIN LISPRO SLIDING SCALE 100 UNITS/ML VIAL SUBQ PRN ×2 (11:44→21:34)
[2021-10-15] MEDS: GAUZE TP SCH (13:00)
[2021-10-15 16:00] VITALS: BP 131/71
--- NOTE | 2021-10-15 19:46 | NUR ---
IV SITE INTACT AND PATENT , NO BRUISES , NO REDNESS , NO COMPLAIN MADE TO THE IV SITE .
--- NOTE | 2021-10-15 19:46 | NUR ---
ENDORSE PATIENT TO PM SHIFT NURSE WHILE PATIENT IS REST IN BED, NO ACUTE DISTRESS NOTED, STABLE
--- NOTE | 2021-10-15 22:00 | NUR ---
REQUESTING CHANGE OF BEDSHEET - WILL REFER TO [facility] Addendum: 10/16/21 at 0306 by Bridgette Givens RN [facility] NAPIER - CHANGED THE BEDSHEET
[2021-10-16] VITALS: BP 125/70
--- NOTE | 2021-10-16 | NUR ---
C/O SLEEPLESSNESS - PROVIDE ENVIRONMENT CONDUSIVE FOR REST AND SLEEP - WILL RE ASSESS IF STILL HAVE SLEEPLESSNESS - WILL REFER TO THE MD .
--- NOTE | 2021-10-16 01:00 | NUR ---
RE VISIT - PT - SLEEPING , CHEST RISE AND FALL EQUALLY , CALL LIGHT WITHIN REACH .
--- NOTE | 2021-10-16 04:00 | NUR ---
SLEEPING , MERCY EASILY AROUSABLE BY SOUNDS , REMINDS PT - I WILL PUT THE LEFT BED SIDE RAIL UP - BUT PT. REFUSE , REMINDS HIM THE IMPORTANCE OF SIDE RAIL UP - BUT STILL HE REFUSE - WILL ENDORSE .
[2021-10-16] MEDS: MEROPENEM 1,000 MG in NACL 0.9% 50 ML IV SCH ×3 (05:06→21:58)
--- NOTE | 2021-10-16 06:00 | NUR ---
SLEEPING , CHEST RISE AND FALL EQUALLY , CALL LIGHT WITHIN REACH .
--- NOTE | 2021-10-16 07:05 | NUR ---
ENDORSED - PT - STABLE . , CALL LIGHT WITHIN REACH .
[2021-10-16 08:00] VITALS: BP 130/69
[2021-10-16] MEDS: BLOOD GLUCOSE MONITORING 1 DEV DEV FS SCH ×4 (09:12→21:58)
[2021-10-16] MEDS: INSULIN LISPRO SLIDING SCALE 100 UNITS/ML VIAL SUBQ PRN (09:16)
--- NOTE | 2021-10-16 11:55 | NUR ---
WOUND CARE RE-EVALUATION NOT DONE, PT. SEEN BY IN HOUSE PODIATRY TEAM AND PENDING FOR OR PROCEDURES. PODIATRY TEAM WILL FOLLOW UP IN HOUSE WOUND CARE AT THIS TIME.
[2021-10-16] MEDS: GAUZE TP SCH (12:37)
--- NOTE | 2021-10-16 14:08 | NUR ---
10/16/21 RD FOLLOW UP COMPLETED PLEASE REFER TO NUTRITION ASSESSMENT UNDER CARE ACTIVITY FOR ESTIMATED NUTRITIONAL NEEDS. 1. CONTINUE CONSISTENT CARB DIET TOLERATED 2. CONTINUE PROSOURCE NO CARB BID FOR WOUND HEALING 3. RD TO FOLLOW-UP 7 DAYS, LOW RISK MARIELLE HERNADEZ RD
[2021-10-16 16:00] VITALS: BP 149/86
--- NOTE | 2021-10-16 19:43 | NUR ---
ENDORSE PATIENT TO PM SHIFT NURSE THAT PATIENT IS REST IN BED, PENDING AMPUTATION PROCEDURE ON HOLD D/T PATIENT ATE LUNCH WHEN DOCTOR MAKE ROUND FOR PER-OP READINESS CHECK. PATIENT WILL BE NPO FROM MID-NIGHT FOR PROCEDURE.
--- NOTE | 2021-10-16 20:50 | NUR ---
DR. SATYA DERAS - PT IS FOR SURGERY NAEL - MADE TORB AND WILL CARRY OUT .
--- NOTE | 2021-10-16 21:03 | NUR ---
NPO POST MD - FOR SURGERY NAEL - PER DR. DESAI START IVF NSS 1 L X 60CC , DON'T GIVE INSULIN UNLESS BS 250 AND ABOVE SINCE PT NPO POST MN . INFORMED DR. DESAI ABOUT DR. HERNADEZ SUGGESTION ABOUT POTASSIUM SUPPLEMENT , BUT PER DR. DESAI JUST FOLLOW THE PRN POTASSIUM PRESCRIBED ON THE EMAR .
[2021-10-16] MEDS: NACL 0.9% 1,000 ML IV SCH (21:58)
--- NOTE | 2021-10-17 | NUR ---
REMINDS PT - NPO - PT HAS MANY QUESTION ABOUT THE SURGERY NAEL - PER HIM HE HAD SURGERY BEFORE AND HE WANTS TO CLEAR EVERYTHING TO THE SURGEON ABOUT THE PROCEDURE - WILL ADDRESS THE PT.'S CONCERN TO THE SURGEON PRIOR THE SURGERY , WILL SUGGEST TO SURGEON RE DISCUSSION ABOUT THE PROCEDURE . - WILL ENDORSE . Addendum: 10/17/21 at 0116 by Bridgette Givens RN W/ ON GOING NSS 60 CC/ HR - INFUSING WELL - PER DR. DESAI DON'T GIVE INSULIN UNLESS BS 250 AND ABOVE , SINCE PT IS NPO POST MN - WILL ENDORSE .
[2021-10-17 01:00] VITALS: BP 122/65
--- NOTE | 2021-10-17 02:00 | NUR ---
SLEEPING , CALL LIGHT WITHIN REACH
--- NOTE | 2021-10-17 04:00 | NUR ---
LEFT BED SIDE RAIL DOWN - REMINDS PT THE IMPORTANCE OF BED SIDE RAILS UP . , BUT PT STILL REFUSE TO LIFT UP THE LEFT SIDE RAIL . - WILL ENDORSE , CALL LIGHT WITHIN REACH .
[2021-10-17] MEDS: MEROPENEM 1,000 MG in NACL 0.9% 50 ML IV SCH ×2 (05:22→12:53)
[2021-10-17 05:41] LABS: BASOPHILS % (AUTO) 0.5 % (0.0-2.0); EOSINOPHILS # (AUTO) 0.4 K/uL (0-0.4); EOSINOPHILS % (AUTO) 7.8 % (0.0-4.0); HEMATOCRIT 42.2 % (36-52); LYMPHOCYTES # (AUTO) 1.7 K/uL (2.0-11.5); LYMPHOCYTES % (AUTO) 31.9 % (20.5-51.1); MEAN CORPUSCULAR HEMOGLOBIN 33 pg (27-31); MEAN CORPUSCULAR HGB CONC 36 g/dL (33-37); MEAN CORPUSCULAR VOLUME 92.3 fL (80-94); MONOCYTES # (AUTO) 0.5 K/uL (0.8-1.0); MONOCYTES % (AUTO) 9.7 % (1.7-9.3); NEUTROPHILS # (AUTO) 2.7 K/uL (1.8-7.7); NEUTROPHILS % (AUTO) 50.1 % (42.2-75.2); PLATELET COUNT (AUTO) 141 K/uL (140-450); RED BLOOD CELL COUNT(AUTO) 4.57 MIL/uL (4.20-6.10); RED CELL DISTRIBUTION WIDTH 13.2 % (11.6-13.7); WHITE BLOOD COUNT (AUTO) 5.5 K/uL (4.8-10.8)
--- NOTE | 2021-10-17 06:00 | NUR ---
ROUNDS , NO COMPLAIN MADE , CALL LIGHT WITHIN REACH
[2021-10-17 06:21] LABS: PROTHROMBIN TIME 10.8 secs (10.8-13.4)
[2021-10-17 06:34] LABS: ANION GAP 11.7 (8-16); CREATININE 0.7 mg/dL (0.6-1.3); POTASSIUM 3.7 mmol/L (3.5-5.1)
[2021-10-17] MEDS: BLOOD GLUCOSE MONITORING 1 DEV DEV FS SCH ×4 (06:54→21:09)
--- NOTE | 2021-10-17 07:11 | NUR ---
LATEST BS 105 - ENDORSED TO NURSE COPPOLA WATCH THE BS , ENDORSED TO NURSE COPPOLA I WILL SEND MSG TO DR ROSALES FOR RE DISCUSSION OF THE PROCEDURE / SURGERY TO THE PT - I TOLD TO NURSE COPPOLA SHE HAVE TO FOLLOW UP IF THERE IS FURTHER ORDERS FROM DR. ROSALES . NURSE COPPOLA VERBALIZES UNDERSTANDING . ENDORSED - PT - STABLE .
[2021-10-17 08:00] VITALS: BP 137/75
[2021-10-17] MEDS: GAUZE TP SCH (12:53)
[2021-10-17] MEDS: NACL 0.9% 1,000 ML IV SCH ×2 (13:02→18:55)
--- NOTE | 2021-10-17 15:00 | NUR ---
PATIENT WAS PICKED UP BY OR NURSE WITH STABLE CONDITION, NPO SINCE MIDNIGHT. 1130'S ACCUCHECK READ 114, PROCEDURE CONSENT SIGNED, VITAL WITHIN PATIENT'S BASELINE. AFTER PATIENT LEFT FOR SURGERY, PATIENT'S FAMILY, HEIKE ([phone]) COME TO HIS ROOM. NURSE SEND HEIKE TO WAITING FOR PATIENT AND AGREE TO CALL HEIKE WHEN PATIENT RETURN FROM INCISION & DRAINAGE PROCEDURE. WILL CONTINUE TO MONITOR.
[2021-10-17] MEDS ORDERED: BUPIVACAINE-MPF 0.5% 30 ML VIAL INJ ONE (16:51)
[2021-10-17] MEDS ORDERED: PROPOFOL 200 MG/20 ML VIAL IV ONE ×2 (18:29)
[2021-10-17] MEDS ORDERED: hydrALAZINE 20 MG/ML VIAL IVP PRN (18:55)
[2021-10-17] MEDS ORDERED: HYDROmorphone 1 MG/ML AMP IVP PRN (18:55)
[2021-10-17] MEDS ORDERED: LABETALOL 20 MG/4 ML VIAL IVP PRN (18:55)
[2021-10-17] MEDS ORDERED: ONDANSETRON 4 MG/2 ML VIAL IVP PRN (18:55)
[2021-10-17] MEDS ORDERED: BLOOD GLUCOSE MONITORING 1 DEV DEV FS SCH (18:55)
--- NOTE | 2021-10-17 19:27 | NUR ---
ENDORSE PATIENT TO PM SHIFT NURSE WHILE PATIENT IN OR FOR R. FOOT INSERTION AND DRAINAGE PROCEDURE. PM SHIFT NURSE WILL F/U FOR UPDATE PATIENT'S STATUS TO JASMINA AFTER PATIENT RETURN FROM OR.
--- NOTE | 2021-10-17 21:10 | NUR ---
ADMINISTERED SCHEDULED MEDICATION PER MD ORDER. NO COMPLAINTS OF PAIN AT THIS TIME. CALL LIGHT WITHIN REACH.
--- NOTE | 2021-10-17 22:30 | NUR ---
ANSWERED CALL LIGHT , NEEDS ATTENDED TO.
[2021-10-17] MEDS ORDERED: PIPERACILLIN/TAZOBACTAM 3.375 GM VIAL IV ONE (23:38)
[2021-10-17] MEDS: PIPERACILLIN/TAZOBACTAM 3.375 GM in DEXTROSE 5% 50 ML IV SCH (23:52)
--- NOTE | 2021-10-17 23:52 | NUR ---
ZOSYN IVPB ADMINISTERED ORDERED BY
[2021-10-18] VITALS: BP 121/68
[2021-10-18] MEDS: NACL 0.9% 1,000 ML IV SCH ×5 (01:40→23:10)
[2021-10-18] MEDS: ACETAMINOPHEN 325 MG TAB PO PRN ×3 (01:51→02:03)
--- NOTE | 2021-10-18 02:00 | NUR ---
COMPLAINED OF MILD PAIN ON THE RIGHT FOOT, MEDICATED.
[2021-10-18] MEDS ORDERED: PIPERACILLIN/TAZOBACTAM 3.375 GM VIAL IV ONE (05:37)
[2021-10-18] MEDS: PIPERACILLIN/TAZOBACTAM 3.375 GM in DEXTROSE 5% 50 ML IV SCH ×3 (05:44→17:48)
[2021-10-18] MEDS: BLOOD GLUCOSE MONITORING 1 DEV DEV FS SCH ×4 (06:46→20:49)
--- NOTE | 2021-10-18 07:45 | NUR ---
PATIENT IS STABLE. ENDORSED PATIENT TO MORNING SHIFT RN FOR CONTINUITY OF CARE.
--- NOTE | 2021-10-18 07:46 | NUR ---
RECEIVED REPORT FROM SEISMIC PROSPECTING OBSERVER HELPER NURSE FOR CONTINUITY OF CARE. AAOX4, LEFT FOOT S/P I&D YESTERDAY, DRESSINGS DRY AND INTACT. IV SITE INTACT, PATENT, AND INFUSING IVF PER MD ORDERS. DENIES PAIN AT THIS TIME. REVIEWED PLAN OF CARE WITH PATIENT. VERBALIZED UNDERSTANDING. SAFETY MEASURES IN PLACE, CALL LIGHT WITHIN REACH. WILL CONTINUE TO MONITOR.
[2021-10-18 08:00] VITALS: BP 131/67
--- NOTE | 2021-10-18 08:49 | NUR ---
SCHEDULED MEDICATIONS DUE GIVEN. WILL CONTINUE TO MONITOR.
[2021-10-18] MEDS: GAUZE TP SCH (12:01)
--- NOTE | 2021-10-18 12:05 | NUR ---
SCHEDULED MEDICATIONS DUE GIVEN. WILL CONTINUE MONITOR.
[2021-10-18 16:00] VITALS: BP 133/71
--- NOTE | 2021-10-18 17:48 | NUR ---
SCHEDULED MEDICATIONS DUE GIVEN. WILL CONTINUE TO MONITOR.
--- NOTE | 2021-10-18 19:33 | NUR ---
RECEIVED PT ENDORSEMENT FROM DAY SHIFT NURSE FOR CONTINUITY OF CARE. PT IS AWAKE, ALERT, ORIENTED X 4. PT ABLE TO VERBALIZED NEEDS. RIGHT LOWER LEG IS SWELLING WITH EDEMA + 3, LEFT LEG IS COVERED WITH DRY AND CLEAN DRESSING. PT RIGHT FOOT WOUND COVERED WITH CLEAN AND DRY DRESSING, NO BLEEDING OR ABSCESS NOTED. SALINE LOCK AT LEFT AC 20G INTACT AND PATENT. IV FLUIDS INFUSING WELL AT 60ML/HR. PT DENIES OF FEELING PAIN. CONTINUE TO MONITOR.
--- NOTE | 2021-10-18 19:34 | NUR ---
GAVE REPORT TO VACUUM SPINDLE SANDER NURSE FOR CONTINUITY OF CARE. PATIENT IN STABLE CONDITION.
--- NOTE | 2021-10-18 20:54 | NUR ---
BLOOD SUGAR LEVEL CHECK = 296 = 6 UNITS HUMALOG INSULIN ADMINISTERED PER SLIDING SCALE ORDER. PT TOLERATES WELL, NO SIDE REACTION.
[2021-10-18] MEDS: INSULIN LISPRO SLIDING SCALE 100 UNITS/ML VIAL SUBQ PRN (21:01)
[2021-10-19] VITALS: BP 130/63
[2021-10-19] MEDS: PIPERACILLIN/TAZOBACTAM 3.375 GM in DEXTROSE 5% 50 ML IV SCH ×4 (00:27→17:17)
[2021-10-19] MEDS: BLOOD GLUCOSE MONITORING 1 DEV DEV FS SCH ×5 (06:03→20:37)
--- NOTE | 2021-10-19 06:30 | NUR ---
BLOOD SUGAR CHECK = 98, NO SLIDING SCALE COVERAGE
--- NOTE | 2021-10-19 08:00 | NUR ---
GOT REPORT FROM THE NIGHT NURSE, PT AWAKE DISCUSSED PLAN OF CARE.[id number]
[2021-10-19] MEDS: INSULIN LISPRO SLIDING SCALE 100 UNITS/ML VIAL SUBQ PRN (11:36)
[2021-10-19] MEDS: GAUZE TP SCH (13:00)
[2021-10-19 14:22] LABS: ANION GAP 9.4 (8-16); CARBON DIOXIDE 30.3 mmol/L (21-32); CREATININE 0.8 mg/dL (0.6-1.3); POTASSIUM 3.7 mmol/L (3.5-5.1)
[2021-10-19 14:29] LABS: BASOPHILS % (AUTO) 0.6 % (0.0-2.0); EOSINOPHILS # (AUTO) 0.3 K/uL (0-0.4); EOSINOPHILS % (AUTO) 5.5 % (0.0-4.0); HEMATOCRIT 42.9 % (36-52); LYMPHOCYTES % (AUTO) 18.4 % (20.5-51.1); MEAN CORPUSCULAR HEMOGLOBIN 33 pg (27-31); MEAN CORPUSCULAR HGB CONC 35 g/dL (33-37); MEAN CORPUSCULAR VOLUME 93.1 fL (80-94); MONOCYTES # (AUTO) 0.5 K/uL (0.8-1.0); MONOCYTES % (AUTO) 8.5 % (1.7-9.3); NEUTROPHILS # (AUTO) 3.7 K/uL (1.8-7.7); PLATELET COUNT (AUTO) 142 K/uL (140-450); RED BLOOD CELL COUNT(AUTO) 4.61 MIL/uL (4.20-6.10); RED CELL DISTRIBUTION WIDTH 13.2 % (11.6-13.7); WHITE BLOOD COUNT (AUTO) 5.5 K/uL (4.8-10.8)
[2021-10-19] MEDS: NACL 0.9% 1,000 ML IV SCH (16:28)
[2021-10-19] MEDS ORDERED: diphenhydrAMINE 50 MG/ML VIAL IVP SCH (18:20)
--- NOTE | 2021-10-19 19:20 | NUR ---
RECEIVED ENDORSEMENT FROM DAY SHIFT NURSE FOR CONTINUITY OF CARE. PT IS AWAKE , ALERT AND RESPONSIVE VERBALLY. PT DOES NOT COMPLAINTS OF PAIN OR DISCOMFORT. SALINE LOCK IS INTACT AND PATENT. IV FLUID IS INFUSING WELL, NO NOTED ANY REDNESS/RASHES OR SWELLING ON IV SITE. RIGHT FOOT IS COVERED WITH CLEAN AND DRY DRESSING. NO COMPLAINTS OF PAIN ON AFFECTED SITE. CONTINUE TO MONITOR.
--- NOTE | 2021-10-19 20:30 | NUR ---
BLOOD SUGAR CHECK = 153. PT SHOULD HAVE 2 UNITS OF SLIDING SCALE INSULIN, PT REFUSED INSULIN. INSULIN NOT ADMINISTERED.
--- NOTE | 2021-10-19 20:44 | NUR ---
PT TOLERATES WELL WITH HEPARIN INJECTION, NO COMPLAINTS OF PAIN, NO SIDE REACTION NOTED.
[2021-10-20] MEDS: PIPERACILLIN/TAZOBACTAM 3.375 GM in DEXTROSE 5% 50 ML IV SCH ×4 (00:28→17:04)
--- NOTE | 2021-10-20 06:30 | NUR ---
BLOOD SUGAR CHECK = 103, NO SLIDING SCALE COVERAGE.
[2021-10-20 07:15] LABS: BASOPHILS % (AUTO) 0.7 % (0.0-2.0); EOSINOPHILS # (AUTO) 0.4 K/uL (0-0.4); EOSINOPHILS % (AUTO) 7.6 % (0.0-4.0); HEMOGLOBIN 14.1 g/dL (12.0-18.0); LYMPHOCYTES # (AUTO) 1.6 K/uL (2.0-11.5); LYMPHOCYTES % (AUTO) 28.3 % (20.5-51.1); MEAN CORPUSCULAR HEMOGLOBIN 33 pg (27-31); MEAN CORPUSCULAR HGB CONC 36 g/dL (33-37); MEAN CORPUSCULAR VOLUME 92.4 fL (80-94); MONOCYTES # (AUTO) 0.6 K/uL (0.8-1.0); MONOCYTES % (AUTO) 9.9 % (1.7-9.3); NEUTROPHILS % (AUTO) 53.5 % (42.2-75.2); PLATELET COUNT (AUTO) 121 K/uL (140-450); RED BLOOD CELL COUNT(AUTO) 4.23 MIL/uL (4.20-6.10); WHITE BLOOD COUNT (AUTO) 5.6 K/uL (4.8-10.8)
--- NOTE | 2021-10-20 07:25 | NUR ---
PT IS ON STABLE CONDITION. ALL SAFETY MEASURES IN PLACE. ENDORSED TO DAY SHIFT NURSE FOR CONTINUITY OF CARE.
[2021-10-20 07:36] LABS: ANION GAP 13.2 (8-16); CARBON DIOXIDE 25.4 mmol/L (21-32); CREATININE 0.8 mg/dL (0.6-1.3); POTASSIUM 3.6 mmol/L (3.5-5.1)
[2021-10-20] MEDS: BLOOD GLUCOSE MONITORING 1 DEV DEV FS SCH ×4 (07:43→20:59)
[2021-10-20] MEDS: NACL 0.9% 1,000 ML IV SCH (07:59)
[2021-10-20] MEDS: GAUZE TP SCH (11:29)
--- NOTE | 2021-10-20 11:46 | NUR ---
Per patient, waiting for podiatry MD to come take a look at his R foot dressing. Continuing on IV abx.
[2021-10-20] MEDS: ACETAMINOPHEN 325 MG TAB PO PRN (17:13)
--- NOTE | 2021-10-20 17:40 | NUR ---
Patient refused insulin in afternoon BS check 204. Evening BS 109, no insulin needed.
--- NOTE | 2021-10-20 17:40 | NUR ---
Patient complained of 3/10 pain to right feet. Tylenol PRN given.
--- NOTE | 2021-10-20 18:01 | NUR ---
Podiatry MD Dr. Baxter came to see patient. Per , still waiting on wound culture biopsy. Addendum: 10/20/21 at 1803 by Agency Dominique GRAY RN Changed IV abx Zosyn to Levaquin IV abx.
--- NOTE | 2021-10-20 18:22 | NUR ---
Dr. Baxter rewrapped foot on right leg and took/printed wound pics.
--- NOTE | 2021-10-20 19:20 | NUR ---
RECEIVED BEDSIDE ENDORSEMENT FROM AM NURSE. PATIENT AAOX4, RESTING COMFORTABLY IN BED. NO SOB NOTED. ONGOING IVF OF NS AT 60 ML/HR INFUSING ON THE LAC. SAFETY MEASURES ARE IN PLACE. WHEELS OF BED LOCKED. CALL LIGHT WITHIN REACH. DENIES PAIN. RIGHT FOOT DRESSING DRY AND INTACT. WILL CONTINUE TO MONITOR.
--- NOTE | 2021-10-20 20:52 | NUR ---
SCHEDULED MEDICATION ADMINISTERED PER MD ORDERED.
--- NOTE | 2021-10-20 20:59 | NUR ---
BLOOD SUGAR WAS 186, ADMINISTERED 2 UNITS HUMALOG ORDERED PER SLIDING SCALE.
[2021-10-20] MEDS: INSULIN LISPRO SLIDING SCALE 100 UNITS/ML VIAL SUBQ PRN (21:01)
[2021-10-21] MEDS: PIPERACILLIN/TAZOBACTAM 3.375 GM in DEXTROSE 5% 50 ML IV SCH ×4 (00:13→17:19)
--- NOTE | 2021-10-21 00:13 | NUR ---
ZOSYN IVPB GIVEN ORDERED BY .
[2021-10-21] MEDS: NACL 0.9% 1,000 ML IV SCH ×2 (01:10→17:01)
--- NOTE | 2021-10-21 02:50 | NUR ---
PATIENT IS SLEEPING. NO S/S OF RESPIRATORY DISTRESS. SAFETY MEASURES IN PLACE. CALL LIGHT WITHIN REACH.
[2021-10-21] MEDS: ACETAMINOPHEN 325 MG TAB PO PRN (05:15)
--- NOTE | 2021-10-21 05:15 | NUR ---
PATIENT COMPLAINED OF MILD PAIN ON THE RIGHT FOOT, MEDICATED.
[2021-10-21 06:16] LABS: BASOPHILS % (AUTO) 0.8 % (0.0-2.0); EOSINOPHILS # (AUTO) 0.5 K/uL (0-0.4); EOSINOPHILS % (AUTO) 10.4 % (0.0-4.0); HEMATOCRIT 40.9 % (36-52); HEMOGLOBIN 14.6 g/dL (12.0-18.0); LYMPHOCYTES # (AUTO) 1.6 K/uL (2.0-11.5); LYMPHOCYTES % (AUTO) 30.8 % (20.5-51.1); MEAN CORPUSCULAR HEMOGLOBIN 33 pg (27-31); MEAN CORPUSCULAR HGB CONC 36 g/dL (33-37); MEAN CORPUSCULAR VOLUME 91.7 fL (80-94); MONOCYTES # (AUTO) 0.4 K/uL (0.8-1.0); MONOCYTES % (AUTO) 8.6 % (1.7-9.3); NEUTROPHILS # (AUTO) 2.6 K/uL (1.8-7.7); NEUTROPHILS % (AUTO) 49.4 % (42.2-75.2); PLATELET COUNT (AUTO) 131 K/uL (140-450); RED BLOOD CELL COUNT(AUTO) 4.46 MIL/uL (4.20-6.10); RED CELL DISTRIBUTION WIDTH 13.2 % (11.6-13.7); WHITE BLOOD COUNT (AUTO) 5.2 K/uL (4.8-10.8)
[2021-10-21 06:18] LABS: ANION GAP 10.6 (8-16); CARBON DIOXIDE 27.4 mmol/L (21-32); CREATININE 0.8 mg/dL (0.6-1.3)
[2021-10-21] MEDS: BLOOD GLUCOSE MONITORING 1 DEV DEV FS SCH ×4 (06:51→20:45)
--- NOTE | 2021-10-21 06:51 | NUR ---
BLOOD SUGAR WAS 104. NO INSULIN COVERAGE NEEDED.
--- NOTE | 2021-10-21 06:55 | NUR ---
SPOKE WITH ANSELMO FROM PHARMACY REGARDING LEVAQUIN ORDERED, HE SAID THE ORDER DID NOT APPEAR IN THE SYSTEM. HE SAID TO TELL THE TO REORDER.
--- NOTE | 2021-10-21 07:43 | NUR ---
PATIENT STABLE. ENDORSED TO MORNING SHIFT RN FOR CONTINUITY OF CARE.
--- NOTE | 2021-10-21 07:44 | NUR ---
RECEIVED BEDSIDE ENDORSEMENT FROM PINSETTER MECHANIC HELPER NURSE FOR CONTINUITY OF CARE. PATIENT AAOX4, RESTING COMFORTABLY IN BED. NO SOB NOTED. ONGOING IVF OF NS AT 60 ML/HR INFUSING ON THE LAC. RIGHT FOOT DRESSING DRY AND INTACT. PLAN OF CARE DISCUSSED. SAFETY MEASURES ARE IN PLACE. WHEELS OF BED LOCKED. CALL LIGHT WITHIN REACH. DENIES PAIN. WILL CONTINUE TO MONITOR.
[2021-10-21 08:00] VITALS: BP 148/69
--- NOTE | 2021-10-21 09:45 | NUR ---
ALL SCHEDULED MEDS GIVEN. PT IS STABLE. NO DISTRESS NOTED. WILL CONTINUE TO MONITOR.
[2021-10-21] MEDS ORDERED: LEVOFLOXACIN 750 MG/D5W PREMIX 150 ML IV SCH (10:00)
[2021-10-21] MEDS: INSULIN LISPRO SLIDING SCALE 100 UNITS/ML VIAL SUBQ PRN (12:12)
[2021-10-21] MEDS: GAUZE TP SCH (13:03)
--- NOTE | 2021-10-21 13:15 | NUR ---
FOOT DRESSING CHANGED. NO DRAINAGE NOTED. KEPT C/D/I.
[2021-10-21] MEDS ORDERED: LEVO-481 PO (13:20)
[2021-10-21 16:00] VITALS: BP 150/77
--- NOTE | 2021-10-21 17:19 | NUR ---
BS CHECK WAS 131. NO INSULIN COVERAGE NEEDED
--- NOTE | 2021-10-21 19:37 | NUR ---
ENDORSED TO QUICKBOOKS BOOKKEEPER NURSE FOR CONTINUITY OF CARE. PT IS STABLE.
--- NOTE | 2021-10-21 19:40 | NUR ---
RECEIVED REPORT FROM AM NURSE JASKARAN FOR CONTINUITY OF CARE. PT IS STABLE. AWAKE A&OX4 SITTING IN BED WATCHING [id number] PAIN. ON RM AIR/O2 WITH NO ACUTE DISTRESS. RR EVEN AND UNLABORED WITH EQUAL CHEST RISE. GI INTACT. PT'S SKIN R FOOT DRESSING D&I. PT CAN TRANSFER INDEPENDENTLY FROM BED TO W/C TO TOILET. PT IS CONTINENT. ALL SAFETY MEASURES IN PLACE. BED IN LOW AND LOCKED POSITION. CALL LIGHT WITHIN REACH. WILL CONTINUE TO MONITOR.
[2021-10-22] VITALS: BP 148/71
[2021-10-22] MEDS: PIPERACILLIN/TAZOBACTAM 3.375 GM in DEXTROSE 5% 50 ML IV SCH ×5 (00:12→22:56)
[2021-10-22 05:50] LABS: BASOPHILS % (AUTO) 0.8 % (0.0-2.0); EOSINOPHILS # (AUTO) 0.5 K/uL (0-0.4); EOSINOPHILS % (AUTO) 9.7 % (0.0-4.0); HEMATOCRIT 40.3 % (36-52); HEMOGLOBIN 14.5 g/dL (12.0-18.0); LYMPHOCYTES # (AUTO) 1.5 K/uL (2.0-11.5); LYMPHOCYTES % (AUTO) 28.3 % (20.5-51.1); MEAN CORPUSCULAR HEMOGLOBIN 33 pg (27-31); MEAN CORPUSCULAR HGB CONC 36 g/dL (33-37); MEAN CORPUSCULAR VOLUME 90.4 fL (80-94); MONOCYTES # (AUTO) 0.4 K/uL (0.8-1.0); MONOCYTES % (AUTO) 7.5 % (1.7-9.3); NEUTROPHILS # (AUTO) 2.8 K/uL (1.8-7.7); NEUTROPHILS % (AUTO) 53.7 % (42.2-75.2); PLATELET COUNT (AUTO) 130 K/uL (140-450); RED BLOOD CELL COUNT(AUTO) 4.46 MIL/uL (4.20-6.10); WHITE BLOOD COUNT (AUTO) 5.1 K/uL (4.8-10.8)
--- NOTE | 2021-10-22 06:15 | NUR ---
BS= 106 NO INSULIN COVERAGE NEEDED. NOTICED R FOOT DRESSING SOILED THROUGH BANDAGES AND LUCIA WRAP. DID DRESSING CHANGE PER PROTOCOL. OLD DRESSINGS WERE DRIED WITH BETADINE. SUTURED R GREAT TOE AMPUTATION AND PARTIAL AMPUTATION OF 1ST METATARSAL BONE SUTURES DRY AND INTACT. CLEANSED AREA WITH WOUND CARE SOLUTION ; PATTED DRY; APPLIED SILVASORB GEL AND COVERED WITH DRY DRESSING. WRAPPED WITH BETTY AND LUCIA WRAP. WILL ENDORSE TO DAY SHIFT.
[2021-10-22 06:31] LABS: ANION GAP 11.1 (8-16); CARBON DIOXIDE 26.3 mmol/L (21-32); CREATININE 0.8 mg/dL (0.6-1.3); POTASSIUM 3.4 mmol/L (3.5-5.1)
[2021-10-22] MEDS: BLOOD GLUCOSE MONITORING 1 DEV DEV FS SCH ×4 (06:47→21:30)
--- NOTE | 2021-10-22 07:20 | NUR ---
[facility] FOR CONTINUITY OF CARE. PT CURRENTLY SLEEPING. A/OX4, BREATHING EVEN, REGULAR, AND UNLABORED ON ROOM AIR. PT IS CONTINENT OF THE BOWEL AND BLADDER. DRESSING ON RIGHT FOOT IS CLEAN, DRY, AND INTACT. NO SIGNS OF PAIN OR DISTRESS NOTED AT THIS TIME. PT IN STABLE CONDITION.
[2021-10-22 08:00] VITALS: BP 113/68
[2021-10-22] MEDS: POTASSIUM CHLORIDE 10 MEQ TABER PO PRN (08:59)
--- NOTE | 2021-10-22 09:00 | NUR ---
PT VISUALLY ASSESSED, DENIES ANY PAIN AT THIS TIME.
--- NOTE | 2021-10-22 11:00 | NUR ---
PT VISUALLY ASSESSED, DENIES ANY PAIN AT THIS TIME.
[2021-10-22] MEDS: NACL 0.9% 1,000 ML IV SCH (11:06)
[2021-10-22] MEDS: INSULIN LISPRO SLIDING SCALE 100 UNITS/ML VIAL SUBQ PRN ×2 (11:39→21:32)
--- NOTE | 2021-10-22 13:00 | NUR ---
PT VISUALLY ASSESSED, DENIES ANY PAIN AT THIS TIME.
[2021-10-22] MEDS: GAUZE TP SCH (13:18)
--- NOTE | 2021-10-22 15:00 | NUR ---
PT VISUALLY ASSESSED, DENIES ANY PAIN AT THIS TIME.
[2021-10-22 16:00] VITALS: BP 110/60
--- NOTE | 2021-10-22 17:50 | NUR ---
PT VISUALLY ASSESSED, DENIES ANY PAIN AT THIS TIME.
--- NOTE | 2021-10-22 19:15 | NUR ---
ENDORSED PT TO [facility] NURSE PANDEY FOR CONTINUITY OF CARE. PT IN STABLE CONDITION.
--- NOTE | 2021-10-22 19:20 | NUR ---
RECEIVED REPORT FROM AM NURSE FOR CONTINUITY OF CARE. PT IS STABLE IN BED INDEPENDENT. A&OX4. RR EVEN AND UNLABORED ON RM AIR. CONTINENT OF BOWEL AND BLADDER. DRESSING ON R FOOT IS CLEAN ,DRY ,AND INTACT, NO S/S OF PAIN OR DISTRESS NOTED AT THIS TIME.
--- NOTE | 2021-10-22 21:00 | NUR ---
FREQ ROUNDS YR=797 RECEIVED 4 UNITS HUMALOG INSULIN PER SLIDING SCALE. HS MEDS GIVEN. RR EVEN AND UNLABORED WITH EQUAL CHEST RISE. ALL SAFETY MEASURES IN PLACE. CALL LIGHT WITHIN REACH WILL CONTINUE TO MONITOR.
[2021-10-23] VITALS: BP 149/71
[2021-10-23] MEDS ORDERED: ZOLPIDEM 5 MG TAB PO PRN (03:10)
[2021-10-23] MEDS: NACL 0.9% 1,000 ML IV SCH ×2 (03:46→04:48)
[2021-10-23] MEDS: PIPERACILLIN/TAZOBACTAM 3.375 GM in DEXTROSE 5% 50 ML IV SCH ×3 (04:24→16:49)
[2021-10-23] MEDS: BLOOD GLUCOSE MONITORING 1 DEV DEV FS SCH ×4 (06:27→20:57)
[2021-10-23 06:38] LABS: BASOPHILS % (AUTO) 0.7 % (0.0-2.0); EOSINOPHILS # (AUTO) 0.6 K/uL (0-0.4); EOSINOPHILS % (AUTO) 10.3 % (0.0-4.0); HEMATOCRIT 39.8 % (36-52); HEMOGLOBIN 14.1 g/dL (12.0-18.0); LYMPHOCYTES # (AUTO) 1.5 K/uL (2.0-11.5); LYMPHOCYTES % (AUTO) 26.9 % (20.5-51.1); MEAN CORPUSCULAR HEMOGLOBIN 33 pg (27-31); MEAN CORPUSCULAR HGB CONC 35 g/dL (33-37); MEAN CORPUSCULAR VOLUME 91.9 fL (80-94); MONOCYTES # (AUTO) 0.5 K/uL (0.8-1.0); MONOCYTES % (AUTO) 8.2 % (1.7-9.3); NEUTROPHILS # (AUTO) 3.1 K/uL (1.8-7.7); NEUTROPHILS % (AUTO) 53.9 % (42.2-75.2); PLATELET COUNT (AUTO) 141 K/uL (140-450); RED BLOOD CELL COUNT(AUTO) 4.33 MIL/uL (4.20-6.10); RED CELL DISTRIBUTION WIDTH 13.3 % (11.6-13.7); WHITE BLOOD COUNT (AUTO) 5.8 K/uL (4.8-10.8)
[2021-10-23 06:41] LABS: ANION GAP 11.3 (8-16); CARBON DIOXIDE 25.2 mmol/L (21-32); CREATININE 0.7 mg/dL (0.6-1.3); POTASSIUM 3.5 mmol/L (3.5-5.1)
--- NOTE | 2021-10-23 07:30 | NUR ---
ENDORSED REPORT TO AM NURSE COPPOLA FOR CONTINUITY OF CARE.S=106 NO INSULIN COVERAGE NEEDED. PT IS STABLE. ALL NEEDS MET THROUGHOUT THE SHIFT.
[2021-10-23 08:00] VITALS: BP 141/69
[2021-10-23] MEDS: INSULIN LISPRO SLIDING SCALE 100 UNITS/ML VIAL SUBQ PRN (12:00)
[2021-10-23] MEDS: GAUZE TP SCH (12:00)
--- NOTE | 2021-10-23 12:53 | NUR ---
DISCHARGE PLANNING SW MEET WITH PATIENT AT BED SIDE TO DISCUSS DISCHARGE PLANNING TODAY; SW INFORMED PATIENT THAT WHEN CALLING THE [facility] TO COORDINATE HIS DC AND RETURN TO FACILITY TODAY THESE PROP DRAWER WAS TOLD BY ADMIN STAFF CHRISTIANO THAT [facility] WAS NO LONGER AVAILABLE AND HAS THEREFORE; HE WAS NO LONGER ABLE TO RETURN TO THE FACILITY. SW ENCOURAGED PATIENT TO EXPLORE ANOTHER ALTERNATIVES FOR HOUSING AT DISCHARGE. SW DISCUSSED RETURNING TO HIS FORMER HOME AN OPTION. DURING CONVERSATION WITH PATIENT HE BECAME VERY FRUSTRATED AND WORRY ABOUT THE NEWS SW JUST GIVE HIM. PATIENT RESPONDED THAT THE [facility] NEVER INFORM HIM ABOUT A BED HOLD EXPIRING AND OF HIS SOON DISCHARGE PLAN FROM THE [facility]. PER PATIENT HE WAS COUNTING ON RETURNING TO THE FACILITY DUE TO NOT HAVING ASSISTANCE AT THE PLACE HE WAS STAYING BEFORE HE WAS SEND TO THE [facility] ABOUT 5 MONTHS AGO SINCE, HE WAS RENTING A ROOM FROM A FAMILY HOME THAT IS NOT HANDICAP ACCESSIBLE THEREFORE HE IS WORRY ABOUT RETURNING TO SAME PLACE AND NOT HAVING ANY ASSISTANCE WITH HIS MEDICAL CARE. PATIENT REPORTED NOT HAVING FAMILY LIVING WITH HIM AND ONLY RENTING A ROOM FROM A FAMILY HOME FOR ABOUT $400.00 A MONTH. PER PATIENT STATED THAT HE CAN RETURN TO SAME PLACE BUT HE WORRIES ABOUT LACK OF ASSISTANCE WITH HIS CARE. PATIENT STATED THAT HE WILL NOT DC OR LEAVE THE HOSPITAL UNTIL HE WILL SPEAK TO M/CM AND HIS INSURANCE WHICH HE IS CALLING OVER THE PHONE. SW TOLD PATIENT THAT SHE WILL INFORM CM ABOUT HIS CONCERNS AND SW/CM WILL DISCUSS SITUATION WITH INSURANCE ANS WELL THE [facility] TO FIND A POSSIBLE RESOLUTION TO PATIENT'S CONCERNS. PATIENT AGREED. SW WILL FOLLOW UP NEEDED. Addendum: 10/24/21 at 1352 by Nicol Bedoya DISCHARGE PLANNING SW MEET WITH PATIENT AT BEDSIDE TO INFORM HIM THAT CM, INSURANCE AND [facility] HAVE COMMUNICATED AND DISCUSSED HIS CASE COMING UP WITH THE CONCLUSION THAT PATIENT WILL BE RETURNING TO [facility] FACILITY TODAY AFTER HIS DISCHARGE. SW ASK PATIENT IF HE WAS IN AGREEMENT WITH THE PLAN. PATIENT STATED "YES; THANK YOU SO MUCH FOR YOUR HELP AND UNDERSTANDING AND I APOLOGIZED IF YESTERDAY I WAS UPSET AND RUDE TO YOU. I WAS NOT FEELING WELL AND I WAS FRUSTRATED WITH THE INFORMATION I RECEIVED. I KNOW YOU JUST WANTED TO HELP AND I DO SEE THAT TODAY" SW SMILE TO PATIENT AND ACKNOWLEDGE HIS WORDS; THANK HIM AND ENDED THE MEETING. SW WILL FOLLOW UP NEEDED.
--- NOTE | 2021-10-23 15:30 | NUR ---
PATIENT REQUEST NURSE TO DISCONNECT HIM FROM IV LINE; THEREFORE, HE CAN GO BATHROOM. NURSE OFFER HELP AFTER NURSE DISCONNECT PATIENT FROM IV LINE, BUT PATIENT STATS THAT HE IS OKAY TO GET TO BATHROOM BY HIMSELF. WILL CONTINUE TO MONITOR.
[2021-10-23 16:00] VITALS: BP 164/76
--- NOTE | 2021-10-23 19:35 | NUR ---
RECEIVED PT FROM AM NURSE FOR CONTINUITY OF CARE. PT IS STABLE
--- NOTE | 2021-10-23 19:38 | NUR ---
ENDORSE PATIENT TO PM SHIFT NURSE WHILE PATIENT REST IN BED, STABLE, PIV LAC NS INFUSING AT 60ML/HR, R. FOOR INSERTION & DRAINAGE PROCEDURE DONE FEW DAYS AGO. PATIENT IS READY TO D/C HOME
[2021-10-23 20:00] VITALS: BP 139/69
--- NOTE | 2021-10-23 21:40 | NUR ---
ALL MEDICATIONS GIVEN AT THIS TIME,TOLERATED WELL,NO DISTRESS NOTED
[2021-10-24] MEDS: PIPERACILLIN/TAZOBACTAM 3.375 GM in DEXTROSE 5% 50 ML IV SCH ×3 (00:01→12:06)
--- NOTE | 2021-10-24 02:00 | NUR ---
PATIENT ASLEEP,BREATHING EVEN AND UNLABORED,NO DISTRESS NOTED
[2021-10-24 04:00] VITALS: BP 126/71
--- NOTE | 2021-10-24 06:05 | NUR ---
PATIENT ASLEEP THROUGHOUT THE NIGHT,NO S/SX OF DISTRESS NOTED
[2021-10-24] MEDS: BLOOD GLUCOSE MONITORING 1 DEV DEV FS SCH ×2 (06:28→12:06)
--- NOTE | 2021-10-24 08:01 | NUR ---
PER DONNIERN - PT REFUSED LAB DRAW THIS AM . Addendum: 10/24/21 at 0806 by Bridgette Givens RN INFORMED DR. ORTA
--- NOTE | 2021-10-24 10:58 | NUR ---
PER METALLURGICAL ENGINEERING TECHNICIAN - PT - IS FOR DISCHARGE TO HALF-WAY AT 5:30 PM TODAY .
--- NOTE | 2021-10-24 11:27 | NUR ---
10/24/21 RD FOLLOW UP COMPLETED PLEASE REFER TO NUTRITION ASSESSMENT UNDER CARE ACTIVITY FOR ESTIMATED NUTRITIONAL NEEDS. 1. CONTINUE REGULAR DIET TOLERATED 2. MONITOR BLOOD GLUCOSE LEVELS -RECOMMEND [facility] 60GM DIET IF ALTERED 3. RD TO FOLLOW-UP 7 DAYS, LOW RISK MARIELLE HERNADEZ, RD
--- NOTE | 2021-10-24 11:39 | NUR ---
back to [facility] per order - gave report to PETRONA GILLESPIE - WILL ARRANGE TRANSPORT - PER OFFICE SYSTEMS TECHNOLOGY INSTRUCTOR THEN PT WILL DISCHARGE AT 5 :30 PM TODAY
[2021-10-24 11:54] VITALS: BP_SYST 125
[2021-10-24] MEDS: INSULIN LISPRO SLIDING SCALE 100 UNITS/ML VIAL SUBQ PRN (13:17)
--- NOTE | 2021-10-24 16:45 | NUR ---
DISCHARGED , CASING CLEANER BY CREW BACK TO [facility] , PT - STABLE , DRESSING CHANGED , IV NEEDLE REMOVED - NEEDLE INTACT , MIN. BLEEDING .
== END 2021-10-24 16:40 | DRG 305 ==
LOC: MED 14:16 → MMU 18:26 → MTU 21:10
PROVIDERS: ADMIT Family Medicine; ATTEND Family Medicine
PROC: 0Q9N0ZX Drainage of Right Metatarsal, Open Approach, Diagnostic (ICD-10-PCS; 2021-10-17)
PROC: 0Y6M0Z9 Detachment at Right Foot, Partial 1st Ray, Open Approach (ICD-10-PCS; principal; 2021-10-17 15:00)
DX: E11.69 Type 2 diabetes mellitus with other specified complication (principal); D68.69 Other thrombophilia; M86.8X7 Other osteomyelitis, ankle and foot; E11.621 Type 2 diabetes mellitus with foot ulcer; L03.115 Cellulitis of right lower limb; Z20.822 Contact with and (suspected) exposure to COVID-19; Z79.82 Long term (current) use of aspirin; Z79.899 Other long term (current) drug therapy
CPT/HCPCS: 36415; 71045; 73630; 80048; 80053; 82948; 83605; 83735; 85025; 85610; 85730; 87070; 87075; 87081; 87205; 88305; 88311; 93005; 93925; 99285; J1200; J1644; J1815; J1956; J2185; J2270; J2405; J2543; J2704; J3490; J7060; Q0092